=== PATIENT | male | born 1975 | race Caucasian/White ===

== ENCOUNTER → 2020-10-21 14:23 | Outpatient (BNVA) | payer BC, SELFPAY | PROVIDERS: PCP Internal Medicine; Visit Provider Urology | DX: Z76.89 Persons encountering health services in other specified circumstances (principal) ==

== ENCOUNTER → 2020-11-08 08:30 | Outpatient (BNVA) | payer BC, SELFPAY | PROVIDERS: PCP Internal Medicine; Visit Provider Urology ==

== ENCOUNTER 2021-01-17 14:40 | Outpatient (REF) | payer BC, SELFPAY ==
[2021-01-17 17:07] LABS: Prostate Specific Antigen 0.75 ng/mL (<0.05-4.0)
== END 2021-01-17 14:41 | disposition home or self-care (01) ==
LOC: HO.LAB 14:40
PROVIDERS: PCP Internal Medicine; Visit Provider Urology
DX: N50.819 Testicular pain, unspecified (principal); Z80.42 Family history of malignant neoplasm of prostate
CPT/HCPCS: 36415; 64425; 81002; 84153

== ENCOUNTER 2021-02-10 09:50 | Day surgery (SDC) | payer BC, SELFPAY ==
[2021-02-05 11:56] VITALS: BMI 29.4
[2021-02-10] VITALS (8 sets, daily range): BP systolic 111–144; BP diastolic 46–88; PULSE 80–91; RESP 16–18; TEMP 36.1–37; O2SAT 98–100
[2021-02-10] MEDS: Lactated Ringers 1,000 ML 20 ML IVCONT (10:14)
--- NOTE | 2021-02-10 11:55 | P.CONAN_ITS ---
[facility] Active Problems Active Problems: All Active Problems (Updated 01/17/21 @ 15:08 by Ethan kilgore MD) Epididymitis, right (Acute) Family history of prostate cancer (Acute) Orchalgia (Acute) Past Medical History Medical History Orchalgia Surgical History Surgical History No significant past surgical history Social History Social History Smoking Status: Unknown if ever smoked Advance Directives Information Provided: No Meds Allergies Allergy/AdvReac Type Severity Reaction Status Date / Time Penicillins Allergy Mild blisters Verified 02/10/21 09:57 Active Medications: Current Medications Generic Name Dose Route Start Last Admin Trade Name Freq PRN Reason Stop Dose Admin Lactated Ringer's 1,000 mls @ 20 mls/hr 02/10/21 07:30 02/10/21 10:14 Lr IVCONT 20 mls/hr .Q24H NATALEE Administration Home Medications Medication Instructions Recorded Confirmed Last Taken Type bupropion HCl 1 tab PO BID 02/10/21 02/10/21 02/10/21 History buspirone 2 tab PO BID 02/10/21 02/10/21 02/10/21 History lisinopril 02/10/21 02/10/21 02/10/21 History venlafaxine [Effexor XR] 1 cap PO BID 02/10/21 02/10/21 02/10/21 History Exam Exam Date and Time: February 10, 2021 1155 Height,Weight and Vital Signs: Height 5 ft 10 in Weight 92.986 kg Last Vital Signs Temp 97 F 02/10/21 10:01 Pulse 82 02/10/21 10:01 Resp 18 02/10/21 10:01 BP 144/88 H 02/10/21 10:01 Pulse Ox 98 02/10/21 10:01 Airway Mallampati Class: II TM Dist: >3cm Neck ROM: Full Assessment and Plan Assessment Anesthesia Assessment: Anesthesia Plan Discussed and Chart Reviewed Final Anesthetic Review NPO: Yes ASA Class: I Final Preanesthetic Review: No Changes in Pt Med Stat, Meds/Allgs Chart Reviewed, Consent Obtained/Reviewed and Anes Risks/Benef Reviewed Patient Risk: Low Procedure Risk: Low Assessment/Block/Sedation in SS: Assess/Block/Sedation-SS Anesthetic Plan Anesthetic Plan: GA Disposition: Standard PACU
--- NOTE | 2021-02-10 13:26 | MHC.SHP ---
Pre-Procedural Eval Section A The patient is an INPATIENT: No Changes since office visit: No Cold of Flu in the past 2 weeks, No New Medical Problems, No Changes in Medication and No Patient answered all questions The History & Physical has been completed within 30 days and I have reviewed it.: Yes Section B Chief Complaint: testicular pain Allergies: Allergies Allergy/AdvReac Type Severity Reaction Status Date / Time Penicillins Allergy Mild blisters Verified 02/10/21 09:57 Plan Diagnosis/Plan: Unchanged (Right testicular nerve denervation) I have reviewed the history and physical and performed a pertinent physical examination on my patient. No changes have occurred unless specified.
--- NOTE | 2021-02-10 15:01 | PM.OP ---
Brief Operative Note Date of Service: 02/10/21 Pre-op diagnosis: Testicular orchalgia Post-op diagnosis: same Procedure: Right testicular denervation Surgeon: Ethan Jacobs MD Anesthesia: GLMA Estimated blood loss (mL): 0 Pathology: other Condition: stable Disposition: same day
--- NOTE | 2021-02-10 15:02 | P.OP_ITS ---
Operative Note Operative Note Date of Service: 02/10/21 Narrative: PreOperative Diagnosis: Right testicular pain Post Operative Diagnosis: Right testicular pain plus inflamed vas deferens Procedure: Right testicular denervation with sectioning of right vas deferens Surgeon: Dr Ethan Jacobs Anesthesia: General Indications for procedure: 45-year-old male. Right testicle high riding and unable to be reduced with persistent low-level pain. Responded to cord block in office. Plan for right testicular denervation. Understands surgeon 85% success rate. Primary risk is loss of testicle. This will be either immediate or delayed fashion. Procedure: After informed consent was verified the patient was brought to the operating room and placed in a supine position. Anesthesia was administered per protocol. The patient was shaved and then prepped and draped in sterile fashion. Safety pause time-out was observed. Antibiotics have been given. The right inguinal canal was palpated. A 2 in incision was marked directly above the Will canal. Local anesthetic was infiltrated subdermal. Skin incision was taken down to this subcutaneous tissue. The overlying fat from the cord was dissected through. Once the cord was exposed it was lifted to the surface placed a [place] drain under the cord. A tongue depressor was then placed under the cord to give and operative surface. The operative microscope was brought onto the field. This allowed 10 fold magnification throughout the procedure. There was tension noted particularly through the vas deferens which was markedly inflamed and thickened compared to a normal situation. The investing layers of muscle were divided using bipolar cautery and sharp dissection. The muscles of the dartos were taken down in circumferential fashion around the cord structures. We were able to separate the cord structures into the testicular structures and the vas deferens. The intervening layer was markedly inflamed. The testicular structures were isolated with a vessel loop. At this point we used a Doppler to try and lidocaine the vessels in each packet. The cord structure package for the cord structures was stripped of its patching fascia in once insult divided it was left. Attention was focused on the inflamed vas deferens. We were able to slowly expose the vas deferens. Markedly thickened outer layer. Using 11 blade we denervated a 1 cm section of the vas deferens. We then based on the inflammation of the vas deferens we decided to divide the vas deferens. This is partially because the testicle was high riding in the scrotum and it appeared was the inflammation along the length of the vas deferens that was coursing this and it was a very tight cord structure. Once it was divided and released approximately 2 in and the testicle dropped down into a much more dependent position in the scrotum. The distal end was oversewn with 4-0 Maxon. Adequate hemostasis was controlled. The incision was irrigated. Deep tissue was reapproximated with interrupted 3-0 Vicryl. The skin was reapproximated with a running 4-0 Maxon. Dressing was applied with glue He tolerated the procedure well was extubated in the operating room transferred in stable condition to the recovery area Pathology: Inflamed vas deferens Drains:
[2021-02-10] MEDS: Acetaminophen 325 MG TABLET 650 MG PO (15:59)
== END 2021-02-10 16:40 | disposition home or self-care (01) ==
PROVIDERS: PCP Internal Medicine; Visit Provider Urology
PROC: (CPT 55899; principal; 2021-02-10 11:20)
DX: N50.811 Right testicular pain (principal); N49.1 Inflammatory disorders of spermatic cord, tunica vaginalis and vas deferens
CPT/HCPCS: 55899; 69990; 88302; J1885; J1956; J2250; J3010

== ENCOUNTER → 2021-02-26 12:55 | Outpatient (BNVA) | payer BC, SELFPAY | PROVIDERS: PCP Internal Medicine; Visit Provider Urology ==

== ENCOUNTER → 2021-12-16 15:05 | Outpatient (BNVA) | payer BC, SELFPAY | PROVIDERS: PCP Internal Medicine; Visit Provider Urology | DX: R39.15 Urgency of urination (principal); N50.811 Right testicular pain | CPT/HCPCS: 51798 ==

== ENCOUNTER 2022-02-23 13:00 | Outpatient (RCR) | payer BC, SELFPAY ==
--- NOTE | 2022-01-05 14:47 | MHC.PT.EP ---
[facility] [place] Office [place] Office [place] Office [address] Anton Ceja [address] [phone] F: [phone] F: [phone] F: [phone] F: [phone] Physical Therapy Plan of Care Date of Evaluation: 01/05/22 Date of Surgery: 02/10/21 Diagnosis: Testicular pain Assessment: The patient arrived reporting inguinal region pain. He has pain with functional movements and intermittently pain at rest. His greatest pain is following ejaculation. I did an external assessment today of his inguinal region. Increased tissue tension noted around the incision as expected. Decreased fascia mobility as expected. Pt will also benefit on education to avoid clenching during sexual activity. I will also review posture and body mechanics with him. I gave him an initial HEP to begin tissue and facilitate fascia mobility in his 1st layer pelvic floor muscles. Frequency and Duration: The patient will be seen 1x/week x 4 weeks. Short Term Goals: 1. Improve tissue mobility in inguinal region. 2. Establish understanding of diaphragmatic breathing. Airport Guide Goals: 1. Pt to return to all sexual function including ejaculation without pain. 2. The patient to be able to manage HEP independently to maintain gains made in therapy. Treatment Plan: Modalities to reduce pain, spasms and effusion. Manual therapy to restore motion and function. Therapeutic exercise to improve strength and flexibility. Neuromuscular re-education for posture and balance. Therapeutic activities to return to functional activities of daily living. Electronically signed by: Flavia Harris PT DPT Please sign and return to therapist. Thank you for your referral.
== END 2022-05-22 14:36 | disposition home or self-care (01) ==
LOC: HO.PT 13:00
PROVIDERS: PCP Internal Medicine; Visit Provider Urology
DX: N50.819 Testicular pain, unspecified (principal)
CPT/HCPCS: 97110; 97112; 97140; 97161

== ENCOUNTER → 2022-06-23 15:49 | Outpatient (BNVA) | payer BC, SELFPAY | PROVIDERS: PCP Internal Medicine; Visit Provider Urology | DX: R39.15 Urgency of urination (principal) | CPT/HCPCS: 51798 ==

== ENCOUNTER → 2022-11-04 16:19 | Outpatient (BNVA) | payer BC, SELFPAY | PROVIDERS: PCP Internal Medicine; Visit Provider Psychiatry & Neurology Psychiatry | DX: F32.A Depression, unspecified (principal) ==

== ENCOUNTER → 2023-02-18 16:32 | Outpatient (BNVA) | payer BC, SELFPAY | PROVIDERS: PCP Internal Medicine; Visit Provider Psychiatry & Neurology Psychiatry ==

== ENCOUNTER 2023-06-29 16:07 | Outpatient (AMB) | payer BC, SELFPAY ==
--- NOTE | 2023-06-29 16:21 | MHC.OFFVISPS ---
Intake Intake Visit Reasons: depression Allergies Penicillins Allergy (Mild, Verified 06/23/22 08:44) blisters HPI- Psychiatric Chief Complaint: depression HPI Narrative: Pt seen in f/u mood has generally been good no dating socially active no medical changes continues to do well on Wellbutrin and Effexor is aware this can contribute to hypertension patient is being treated for hypertension. Patient has not want to make any changes. Still has been stable future oriented able to enjoy things engaged at work Past Psychiatric History: Past history of severe depression post college was hospitalized in did require ECT Mental Status Exam Mental Status Exam Narrative: Mental Status Exam Narrative: Appearance: Casually dressed Behavior: Cooperative appropriate psychomotor: Within normal limits Speech: Normal volume and prosody Thought proccess logical and goal-directed Thought content: Future oriented no self-harming thoughts some pessimism Mood: Euthymic Affect: Appropriate to mood some Flattening SI:denies HI:denies VH/AH:none Delusions: None Insight/judgment: Good insight and judgment Memory/cog: Intact Occasional insight Assessment and Plan Assessment & Plan (1) Social anxiety disorder: Status: Acute Code(s): F40.10 - Social phobia, unspecified (2) OCD (obsessive compulsive disorder): Status: Acute Code(s): F42.9 - Obsessive-compulsive disorder, unspecified (3) Generalized anxiety disorder: Status: Acute Code(s): F41.1 - Generalized anxiety disorder (4) Major depression, recurrent, full remission: Status: Acute Code(s): F33.42 - Major depressive disorder, recurrent, in full remission Plan Patient stable on current regimen does not wish to make any changes 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 Patient with some restriction of mood but has equal does not wish to be changes where medications can increase blood pressure he is being treated for hypertension history of quite treatment resistant depression Medications: Refilled alprazolam 0.25 mg PO BEDTIME PRN 14 tabs 1RF sleep bupropion HCl 100 mg PO BID 180 tabs 1RF 90 days buspirone 30 mg (2 x 15 mg) PO BID 360 tabs 1RF venlafaxine ER 150 mg PO BID 180 caps 1RF 90 days Counseling and coordination of Care Medication management counseling: Effectiveness and Side effects Diagnosis and Prognosis Counseling: Prognosis over time and Adequacy of current interventions Details: I spent [] minutes reviewing the record, seeing the patient and documenting in the medical record. Counseling provided to the patient/caregiver as outlined below. Addressed patient/caregiver concerns regarding current medication regime including effective adherence. Addressed patient/caregiver concerns regarding diagnosis and prognosis including accuracy of diagnosis, prognosis over time, impact of diagnosis. Addressed patient/caregiver concerns regarding impact of recent stressors. 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
== END 2023-06-29 16:21 | disposition home or self-care (01) ==
LOC: HO.HOP 16:07
PROVIDERS: PCP Internal Medicine; Visit Provider Psychiatry & Neurology Psychiatry
DX: F40.10 Social phobia, unspecified (principal); F42.9 Obsessive-compulsive disorder, unspecified; F41.1 Generalized anxiety disorder; F33.42 Major depressive disorder, recurrent, in full remission
CPT/HCPCS: 99214

== ENCOUNTER → 2023-06-29 16:07 | Outpatient (BNVA) | payer BC, SELFPAY | PROVIDERS: PCP Internal Medicine; Visit Provider Psychiatry & Neurology Psychiatry ==

== ENCOUNTER 2023-08-23 14:28 | Outpatient (AMB) | payer BC, SELFPAY ==
[2023-08-23 14:52] VITALS: BP 110/70; PULSE 94; BMI 29.3
--- NOTE | 2023-08-23 14:52 | HO.NEPHOV ---
HPI HPI Comments History of Present Illness Details Brain was in office in follow-up of his proteinuria. He has longstanding hypertension. He has no diabetes. His blood pressure is well controlled. He has no edema or urinary symptoms. ( he had history of edema from amlodipine). He had no history of coronary disease, CVA, congestive heart failure, peripheral arterial disease, renal artery stenosis or nephrolithiasis. He does not take any nonsteroidal anti-inflammatory medications. He does not have any epistaxis, photosensitivity, skin rashes, joint pains, new bone or back pain. His renal functions had been at baseline. He had free kappa chain and had seen small wind energy installer Dr. Griffith who felt it is not very relevant. He is tolerating CECILIA inhibitor well. He did not have any new or active complaints at the time of this office visit. [facility] Medical History (Updated 08/27/23 @ 06:17 by Martínez Chappell MD) Social anxiety disorder OCD (obsessive compulsive disorder) Generalized anxiety disorder Cyclical vomiting Hypertension Orchalgia Surgical History (Updated 08/23/23 @ 14:54 by Elma Byrne MA) History of hernia surgery History of cholecystectomy No significant past surgical history Social History (Updated 08/23/23 @ 14:54 by Elma Byrne MA) Alcohol intake: never Patient Tobacco Use Status: Never used Tobacco Vital Signs 08/23/23 14:52 Height 5 ft 10 in Weight 204 lb 2 oz BMI 29.3 BP 110/70 Blood Pressure Location Lt brachial Position Sitting Pulse 94 Pulse Source Pulse Oximeter Physical Exam Vital Signs: Last Vital Signs Pulse 94 08/23/23 14:52 BP 110/70 08/23/23 14:52 BMI result Body Mass Index 29.3 Const General: comfortable and no acute distress Orientation/consciousness: patient oriented x3 HEENT Head: Yes normocephalic Mouth: Normal oral and palatal mucosa present Eyes EOM: EOMs intact bilaterally Neck Neck: Yes supple Resp Auscultation: clear to auscultation bilaterally Cardio Jugular venous distension: no JVD Rate: regular rate Heart sounds: Murmur heart sound present GI Palpation (GI): Soft to palpation Auscultation: normal bowel sounds General: Yes no CVA tenderness Back/Spine/Pelvis Back: no CVA tenderness Skin General skin exam: no rashes or lesions noted Neuro General: patient oriented x3 and moves all extremities Extrem General: Yes no pedal edema Assessment & Plan Assessment & Plan (1) Hypertension: Code(s): I10 - Essential (primary) hypertension Qualifiers: Hypertension type: primary hypertension Qualified Code(s): I10 - Essential (primary) hypertension (2) Proteinuria: Code(s): R80.9 - Proteinuria, unspecified Qualifiers: Proteinuria type: other Qualified Code(s): R80.8 - Other proteinuria Plan Cecilio has proteinuria for some time. I ordered a repeat 24 urine collection for follow-up. He is tolerating CECILIA inhibitor well. He had undetectable protein the last visit. He needs to lose weight. His blood pressure has been at goal. He had [place] chains for which he has seen small wind energy installer. His serum calcium has been normal. I did not make any medication changes today. All questions were answered. Follow-up appointment given. Time for a retrieval of data, office visit and recommendation 23 minutes. Orders: Orders Protein, 24 Hr Urine Group 08/23/23 I10 - Essential (primary) hypertension Electrolytes 08/23/23 I10 - Essential (primary) hypertension Blood Urea Nitrogen 08/23/23 I10 - Essential (primary) hypertension Creatinine 08/23/23 I10 - Essential (primary) hypertension Calcium 08/23/23 I10 - Essential (primary) hypertension Coding Level of Care Code Est Pt Level 3 (84004) Diagnoses Primary hypertension I10 Hypertension type: primary hypertension Other proteinuria R80.8 Proteinuria type: other
== END 2023-08-23 15:11 | disposition home or self-care (01) ==
PROVIDERS: PCP Internal Medicine; Visit Provider Internal Medicine Nephrology
DX: I10 Essential (primary) hypertension (principal); R80.8 Other proteinuria
CPT/HCPCS: 99213

== ENCOUNTER → 2023-08-23 14:28 | Outpatient (BNVA) | payer BC, SELFPAY | PROVIDERS: PCP Internal Medicine; Visit Provider Internal Medicine Nephrology ==

== ENCOUNTER 2023-11-30 15:30 | Outpatient (AMB) | payer BC, SELFPAY ==
--- NOTE | 2023-11-30 15:16 | A.OFFPSYCH_ITS ---
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 and not currently going out 2 jobs no significant melancholy no current cancer diagnosis he is followed by Hematology Oncology He has had times borderline hypertension we have discussed possibility of lowering venlafaxine and Wellbutrin has generally been feeling relatively well for a long period of time and has not wanted to decrease Past Psychiatric History: Past history of severe depression post college was hospitalized in did require ECT Subjective Subjective Subjective Medication Compliance: Yes Mental Status Exam Mental Status Exam Narrative: Mental Status Exam Narrative: Appearance: Casually dressed Behavior: Cooperative appropriate psychomotor: Within normal limits Speech: Normal volume and prosody Thought proccess logical and goal-directed Thought content: Future oriented some chronic pessimism Mood: Euthymic Affect: Appropriate to mood some Flattening SI:denies HI:denies VH/AH:none Delusions: None Insight/judgment: Good insight and judgment Memory/cog: Intact Occasional insight Assessment and Plan Assessment & Plan (1) Social anxiety disorder: Status: Acute Code(s): F40.10 - Social phobia, unspecified (2) OCD (obsessive compulsive disorder): Status: Acute Code(s): F42.9 - Obsessive-compulsive disorder, unspecified (3) Major depression, recurrent, full remission: Status: Acute Code(s): F33.42 - Major depressive disorder, recurrent, in full remission Plan Patient generally stable for an extended period some degree of chronic social awkwardness much less in the way of obsessional rumination and dwelling on interactions has he has had in the past feels generally stable on venlafaxine and Wellbutrin we have discussed need to manage blood pressure has not wanted to try and lower medication dosing is aware this could be a contributing factor to increased blood pressure at times Counseling and coordination of Care Pt. Self Management counseling: Exercise and Behavior activation Diagnosis and Prognosis Counseling: Adequacy of current interventions Details: I spent [37] minutes reviewing the record, seeing the patient and documenting in the medical record. Counseling provided to the patient/caregiver as outlined below. Addressed patient/caregiver concerns regarding current medication regime including effective adherence. Addressed patient/caregiver concerns regarding diagnosis and prognosis including accuracy of diagnosis, prognosis over time, impact of diagnosis. Addressed patient/caregiver concerns regarding impact of recent stressors. 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
== END 2023-11-30 15:32 | disposition home or self-care (01) ==
LOC: HO.HOP 15:30
PROVIDERS: PCP Internal Medicine; Visit Provider Psychiatry & Neurology Psychiatry
DX: F40.10 Social phobia, unspecified (principal); F42.9 Obsessive-compulsive disorder, unspecified; F33.42 Major depressive disorder, recurrent, in full remission
CPT/HCPCS: 90833; 99213

== ENCOUNTER → 2023-11-30 15:30 | Outpatient (BNVA) | payer BC, SELFPAY | PROVIDERS: PCP Internal Medicine; Visit Provider Psychiatry & Neurology Psychiatry ==

== ENCOUNTER 2024-03-27 15:30 | Outpatient (AMB) | payer BC, SELFPAY ==
--- NOTE | 2024-03-27 15:52 | A.OFFPSYCH_ITS ---
Intake Intake Visit Reasons: depression Allergies Penicillins Allergy (Mild, Verified 06/23/22 08:44) blisters Medication List - Last Reconciled 03/27/24 by Crescencio Veras MD alprazolam 0.25 mg PO BEDTIME PRN atorvastatin 10 mg PO BEDTIME bupropion HCl SR 100 mg PO BID 90 days buspirone 30 mg (2 x 15 mg) PO BID hydrocodone-acetaminophen 5-325 mg 1 tab PO Q4H PRN 7 days lisinopril venlafaxine ER 150 mg PO BID 90 days HPI- Psychiatric Chief Complaint: depression HPI Narrative: Pt seen in f/u does have inc protein in blood work they are following had protein electrophoresis they have been following patient is aware this could be a type of blood cancer blood pressure in control Patient's mood generally stable feels he has a reasonable quality of life genera lly content no complaints of side effects Past Psychiatric History: Past history of severe depression post college was hospitalized in did require ECT Mental Status Exam Mental Status Exam Narrative: Mental Status Exam Narrative: Appearance: Casually dressed Behavior: Cooperative appropriate psychomotor: Within normal limits Speech: Normal volume and prosody Thought proccess logical and goal-directed Thought content: Future oriented some chronic pessimism Mood: Euthymic Affect: Appropriate to mood some Flattening SI:denies HI:denies VH/AH:none Delusions: None Insight/judgment: Good insight and judgment Memory/cog: Intact Occasional insight Assessment and Plan Assessment & Plan (1) OCD (obsessive compulsive disorder): Status: Acute Code(s): F42.9 - Obsessive-compulsive disorder, unspecified (2) Social anxiety disorder: Status: Acute Code(s): F40.10 - Social phobia, unspecified (3) Major depression, recurrent, full remission: Status: Acute Code(s): F33.42 - Major depressive disorder, recurrent, in full remission Plan Continue Wellbutrin BuSpar venlafaxine patient stable blood pressure and control does not wish to try and make any changes mood generally okay able to enjoy things not overly obsessional continue plan of care follow-up 4 months Medications: Refilled bupropion HCl SR 100 mg PO BID 180 tabs 1RF 90 days buspirone 30 mg (2 x 15 mg) PO BID 360 tabs 1RF venlafaxine ER 150 mg PO BID 180 caps 1RF 90 days Counseling and coordination of Care Pt. Self Management counseling: Exercise and Maintenance-social rhythm Medication management counseling: Effectiveness and Side effects Details: I spent [30] minutes reviewing the record, seeing the patient and documenting in the medical record. Counseling provided to the patient/caregiver as outlined below. Addressed patient/caregiver concerns regarding current medication regime including effective adherence. Addressed patient/caregiver concerns regarding diagnosis and prognosis including accuracy of diagnosis, prognosis over time, impact of diagnosis. Addressed patient/caregiver concerns regarding impact of recent stressors. 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
== END 2024-03-27 16:42 | disposition home or self-care (01) ==
LOC: HO.HOP 15:30
PROVIDERS: PCP Internal Medicine; Visit Provider Psychiatry & Neurology Psychiatry
DX: F42.9 Obsessive-compulsive disorder, unspecified (principal); F40.10 Social phobia, unspecified; F33.42 Major depressive disorder, recurrent, in full remission
CPT/HCPCS: 99214

== ENCOUNTER → 2024-03-27 15:30 | Outpatient (BNVA) | payer BC, SELFPAY | PROVIDERS: PCP Internal Medicine; Visit Provider Psychiatry & Neurology Psychiatry ==

== ENCOUNTER 2024-08-07 14:13 | Outpatient (AMB) | payer BC, SELFPAY ==
--- NOTE | 2024-08-07 14:42 | A.OFFPSYCH_ITS ---
Intake Intake Visit Reasons: depression Allergies Penicillins Allergy (Mild, Verified 06/23/22 08:44) blisters Medication List - Last Reconciled 08/07/24 by Crescencio Veras MD bupropion HCl SR 100 mg PO BID 90 days buspirone 30 mg (2 x 15 mg) PO BID hydrocodone-acetaminophen 5-325 mg 1 tab PO Q4H PRN 7 days lisinopril venlafaxine ER 150 mg PO BID 90 days HPI- Psychiatric Chief Complaint: depression HPI Narrative: Has generally been psych stable no significant dep episodes. 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.Pt has been doing ok generally feeling good physically mentally sleep ok Past Psychiatric History: Past history of severe depression post college was hospitalized in did require ECT Mental Status Exam Mental Status Exam Narrative: Mental Status Exam Narrative: Appearance: Casually dressed Behavior: Cooperative appropriate psychomotor: Within normal limits Speech: Normal volume and prosody Thought proccess logical and goal-directed Thought content: Future oriented some chronic pessimism Mood: Euthymic Affect: Appropriate to mood some Flattening SI:denies HI:denies VH/AH:none Delusions: None Insight/judgment: Good insight and judgment Memory/cog: Intact Occasional insight Assessment and Plan Assessment & Plan (1) Major depression, recurrent, full remission: Status: Acute Code(s): F33.42 - Major depressive disorder, recurrent, in full remission (2) Generalized anxiety disorder: Status: Acute Code(s): F41.1 - Generalized anxiety disorder (3) OCD (obsessive compulsive disorder): Status: Acute Code(s): F42.9 - Obsessive-compulsive disorder, unspecified (4) Social anxiety disorder: Status: Acute Code(s): F40.10 - Social phobia, unspecified Plan Pt seen in f/u mood stable cont effexor 300 mg buspar cont wellbutrin bp in control generally stable on effexor wellbutrin buspar. Medications: New rosuvastatin 20 mg PO DAILY Refilled buspirone 30 mg (2 x 15 mg) PO BID 360 tabs 1RF venlafaxine ER 150 mg PO BID 180 caps 1RF 90 days bupropion HCl SR 100 mg PO BID 180 tabs 1RF 90 days Counseling and coordination of Care Pt. Self Management counseling: Behavior activation Medication management counseling: Effectiveness and Side effects Diagnosis and Prognosis Counseling: Adequacy of current interventions Details: I spent [39] minutes reviewing the record, seeing the patient and documenting in the medical record. Counseling provided to the patient/caregiver as outlined below. Addressed patient/caregiver concerns regarding current medication regime including effective adherence. Addressed patient/caregiver concerns regarding diagnosis and prognosis including accuracy of diagnosis, prognosis over time, impact of diagnosis. Addressed patient/caregiver concerns regarding impact of recent stressors. 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
== END 2024-08-07 17:09 | disposition home or self-care (01) ==
LOC: HO.HOP 14:13
PROVIDERS: PCP Internal Medicine; Visit Provider Psychiatry & Neurology Psychiatry
DX: F33.42 Major depressive disorder, recurrent, in full remission (principal); F41.1 Generalized anxiety disorder; F42.9 Obsessive-compulsive disorder, unspecified; F40.10 Social phobia, unspecified
CPT/HCPCS: 99214

== ENCOUNTER → 2024-08-07 14:13 | Outpatient (BNVA) | payer BC, SELFPAY | PROVIDERS: PCP Internal Medicine; Visit Provider Psychiatry & Neurology Psychiatry ==

== ENCOUNTER 2024-10-24 10:25 | Outpatient (AMB) | payer BC, SELFPAY ==
--- NOTE | 2024-10-24 10:44 | HO.NEPHOV ---
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 He has longstanding hypertension. He has no diabetes. His blood pressure is well controlled. He has no edema or urinary symptoms. ( he had history of edema from amlodipine). He had no history of coronary disease, CVA, congestive heart failure, peripheral arterial disease, renal artery stenosis or nephrolithiasis. He does not take any nonsteroidal anti-inflammatory medications. He does not have any epistaxis, photosensitivity, skin rashes, joint pains, new bone or back pain. His renal functions had been at baseline. He had free kappa chain and had seen grease man Dr. Griffith who felt it is not very relevant. He is tolerating CECILIA inhibitor well. He did not have any new or active complaints at the time of this office visit. COUNTS INCLUDE 234 BEDS AT THE [facility] Medical History (Updated 08/27/23 @ 06:17 by Martínez Chappell MD) Social anxiety disorder OCD (obsessive compulsive disorder) Generalized anxiety disorder Cyclical vomiting Hypertension Orchalgia Surgical History History of hernia surgery History of cholecystectomy No significant past surgical history Social History Alcohol intake: never Patient Tobacco Use Status: Never used Tobacco Review of Systems Const All systems reviewed & are unremarkable except as noted in HPI and below Physical Exam Vital Signs: Last Vital Signs Pulse 93 10/24/24 10:45 BP 110/80 10/24/24 10:45 Pulse Ox 95 10/24/24 10:45 Oxygen Delivery Method Room Air 10/24/24 10:45 BMI result Body Mass Index 31.0 Const General: comfortable and no acute distress Orientation/consciousness: patient oriented x3 HEENT Head: Yes normocephalic Mouth: Normal oral and palatal mucosa present Eyes EOM: EOMs intact bilaterally Neck Neck: Yes supple Resp Auscultation: clear to auscultation bilaterally Cardio Jugular venous distension: no JVD Rate: regular rate GI Palpation (GI): Soft to palpation Auscultation: normal bowel sounds General: Yes no CVA tenderness Back/Spine/Pelvis Back: no CVA tenderness Skin General skin exam: no rashes or lesions noted Neuro General: patient oriented x3 and moves all extremities Extrem General: Yes no pedal edema Results Reviewed Nephrology Results: No Data to Display Assessment & Plan Assessment & Plan (1) Proteinuria: Code(s): R80.9 - Proteinuria, unspecified Category: Medical Qualifiers: Proteinuria type: other Qualified Code(s): R80.8 - Other proteinuria (2) Hypertension: Code(s): I10 - Essential (primary) hypertension Category: Medical Qualifiers: Hypertension type: primary hypertension Qualified Code(s): I10 - Essential (primary) hypertension Plan Cecilio has proteinuria for some time. I ordered a repeat 24 urine collection is pending. He is tolerating CECILIA inhibitor well. He had undetectable protein the last visit. He needs to lose weight. His blood pressure has been at goal. He had [place] chains for which he has seen grease man. His serum calcium has been normal. I did not make any medication changes today. All questions were answered. Follow-up appointment given. Orders: Orders Protein Creatinine Ratio, Ur 1 Year I10 - Essential (primary) hypertension, R80.8 - Other proteinuria Blood Urea Nitrogen 1 Year I10 - Essential (primary) hypertension, R80.8 - Other proteinuria Electrolytes 1 Year I10 - Essential (primary) hypertension, R80.8 - Other proteinuria Creatinine 1 Year I10 - Essential (primary) hypertension, R80.8 - Other proteinuria Coding Level of Care Code Est Pt Level 4 (33097) Diagnoses Other proteinuria R80.8 Proteinuria type: other Primary hypertension I10 Hypertension type: primary hypertension
[2024-10-24 10:45] VITALS: BP 110/80; PULSE 93; O2SAT 95; BMI 31.0
== END 2024-10-24 11:09 | disposition home or self-care (01) ==
PROVIDERS: PCP Internal Medicine; Visit Provider Internal Medicine Nephrology
DX: R80.8 Other proteinuria (principal); I10 Essential (primary) hypertension
CPT/HCPCS: 99214

== ENCOUNTER 2024-11-20 14:29 | Outpatient (AMB) | payer BC, SELFPAY ==
--- NOTE | 2024-11-20 15:07 | A.OFFPSYCH_ITS ---
Intake Intake Visit Reasons: depression Allergies Penicillins Allergy (Mild, Verified 10/24/24 10:45) blisters Medication List - Last Reconciled 11/20/24 by Crescencio Veras MD bupropion HCl SR 100 mg PO BID 90 days buspirone 30 mg (2 x 15 mg) PO BID lisinopril 10 mg PO DAILY rosuvastatin 20 mg PO DAILY venlafaxine ER 150 mg PO BID 90 days HPI- Psychiatric Chief Complaint: depression HPI Narrative: Pt seen in psych f/u mood ok some winter fatigue much dec obsessional anxiety not exercising regularly no significant depressive episodes no medical changes Past Psychiatric History: Past history of severe depression post college was hospitalized in did require ECT Subjective Subjective Subjective Medication Compliance: Yes Mental Status Exam Mental Status Exam Narrative: Mental Status Exam Narrative: Appearance: Casually dressed Behavior: Cooperative appropriate psychomotor: Within normal limits Speech: Normal volume and prosody Thought proccess logical and goal-directed Thought content: Future oriented Mood: ok Affect: Appropriate to mood some Flattening SI:denies HI:denies VH/AH:none Delusions: None Insight/judgment: Good insight and judgment Memory/cog: Intact Occasional insight Assessment and Plan Assessment & Plan (1) OCD (obsessive compulsive disorder): Status: Acute Code(s): F42.9 - Obsessive-compulsive disorder, unspecified (2) Social anxiety disorder: Status: Acute Code(s): F40.10 - Social phobia, unspecified (3) Major depression, recurrent, full remission: Status: Acute Code(s): F33.42 - Major depressive disorder, recurrent, in full remission Plan cont plan of care have discussed htn risks with meds aware and being tx Medications: Refilled buspirone 30 mg (2 x 15 mg) PO BID 360 tabs 1RF venlafaxine ER 150 mg PO BID 180 caps 1RF 90 days bupropion HCl SR 100 mg PO BID 180 tabs 1RF 90 days Counseling and coordination of Care Details-Self Mgmt counseling: Issues related to maintaining stability being monitored for possible hodgkins Medication management counseling: Effectiveness, Side effects and Duration Diagnosis and Prognosis Counseling: Impact of diagnosis on life functions and Adequacy of current interventions Details: I spent [] minutes reviewing the record, seeing the patient and documenting in the medical record. Counseling provided to the patient/caregiver as outlined below. Addressed patient/caregiver concerns regarding current medication regime including effective adherence. Addressed patient/caregiver concerns regarding diagnosis and prognosis including accuracy of diagnosis, prognosis over time, impact of diagnosis. Addressed patient/caregiver concerns regarding impact of recent stressors. 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
--- OUTSIDE RECORDS SUMMARY | 2024-11-20 16:08 | XMS_ITS | Clinical Summary ---
Author Organization [facility] Facility Address [address] [address] Care Team Providers Care Laboratory Animal Care Veterinarian Name Role Phone Paul Quispe MD Primary Care Provider [phone] Allergies Active Allergy Reactions Criticality Noted Date Comments Penicillin V Other (see comments) 08/28/2022 Medications venlafaxine XR (EFFEXOR-XR) 150 MG 24 hr capsule Take 300 mg by mouth 1 (one) time each day Do not crush or chew. Active buPROPion SR (WELLBUTRIN SR) 100 MG 12 hr tablet Take 100 mg by mouth in the morning and 100 mg in the evening. Do not crush, chew, or split. . Active busPIRone (BUSPAR) 15 MG tablet Take 30 mg by mouth in the morning and 30 mg in the evening. Active lisinopril 10 MG tablet Take 10 mg by mouth 1 (one) time each day Active atorvastatin (LIPITOR) 10 MG tablet Take 10 mg by mouth 1 (one) time each day Active Active Problems Problem Noted Date Diagnosed Date Hypertension 09/01/2022 Hypertensive disorder 08/28/2022 Proteinuria 08/28/2022 Family History Medical History Relation Comments Cancer Father prostate Cancer Sibling thyroid Relation Status Comments Father Alive Mother Alive Sibling Social History Tobacco Use Types Packs/Day Years Used Date Smoking Tobacco: Never Tobacco Cessation:Counseling Given: Not Answered Alcohol Use Standard Drinks/Week Comments No 0 (1 standard drink = 0.6 oz pur e alcohol) Sex and Gender Information Value Date Recorded Sex Assigned at Not on file Legal Sex Male 4:52 PM EST Gender Identity Not on file Sexual Orientation Not on file Last Filed Vital Signs Vital Sign Reading Time Taken Comments Blood Pressure 108/80 06/01/2023 4:49 PM EDT Pulse 92 09/01/2022 3:00 PM EST Temperature - - Respiratory Rate - - Oxygen Saturation 98% 09/01/2022 3:00 PM EST Inhaled Oxygen Concentration - - Weight 93.1 kg (205 lb 3.2 oz) 06/01/2023 4:49 P M EDT Height 177.8 cm (5' 10 ) 09/01/2022 3:00 PM EST Body Mass Index 29.44 09/01/2022 3:00 PM EST Plan of Treatment Health Maintenance Due Date Last Done Comments Pneumococcal Vaccine: Pediat rics (0 to 5 Years) and At-Risk Patients (6 to 64 Years) (1 of 2 - PCV) 1979 Hepatitis B Vaccine (1 of 3 - 19+ 3-dose series) 11/07 Colorectal Cancer Screening: Annual FOBT 2022 Colorectal Cancer Screening: Colonoscopy 2022 Colorectal Cancer Screening: Sigmoidoscopy 2022 Influenza Vaccine (#1) 2024 Insurance [facility] Care Teams Laboratory Animal Care Veterinarian Relationship Specialty Start Date End Date Paul Quispe MD [address] [place] [address] PCP - General 10/28/20
== END 2024-11-20 18:24 | disposition home or self-care (01) ==
LOC: HO.HOP 14:29
PROVIDERS: PCP Internal Medicine; Visit Provider Psychiatry & Neurology Psychiatry
DX: F42.9 Obsessive-compulsive disorder, unspecified (principal); F40.10 Social phobia, unspecified; F33.42 Major depressive disorder, recurrent, in full remission
CPT/HCPCS: 99214

== ENCOUNTER → 2024-11-20 14:29 | Outpatient (BNVA) | payer BC, SELFPAY | PROVIDERS: PCP Internal Medicine; Visit Provider Psychiatry & Neurology Psychiatry ==

== ENCOUNTER 2025-06-12 14:32 | Outpatient (AMB) | payer BC, SELFPAY ==
--- NOTE | 2025-06-12 14:54 | A.OFFPSYCH_ITS ---
Intake Intake Visit Reasons: depression Allergies Penicillins Allergy (Mild, Verified 10/24/24 10:45) blisters Medication List - Last Reconciled 06/12/25 by Crescencio Veras MD bupropion HCl SR 100 mg PO BID 90 days buspirone 30 mg (2 x 15 mg) PO BID lisinopril 10 mg PO DAILY rosuvastatin 20 mg PO DAILY venlafaxine ER 150 mg PO BID 90 days HPI- Psychiatric Chief Complaint: depression HPI Narrative: Pt seen in psych f/u mood stable no complaints of medical difficulties. Patient states hypertension and control occasional cyclic vomiting. No major anxiety and depressive episodes continues to function well at work. Patient does know he should be doing some more physical exercise. He does continue to golf. Blood pressure generally in control he is aware both Effexor and Wellbutrin can increase blood pressure. Feels stable on current regimen Past Psychiatric History: Past history of severe depression post college was hospitalized in did require ECT Mental Status Exam Mental Status Exam Narrative: Mental Status Exam Narrative: Appearance: Casually dressed Behavior: Cooperative appropriate psychomotor: Within normal limits Speech: Normal volume and prosody Thought proccess logical and goal-directed Thought content: Future oriented Mood: ok Affect: Appropriate to mood some Flattening SI:denies HI:denies VH/AH:none Delusions: None Insight/judgment: Good insight and judgment Memory/cog: Intact Occasional insight Assessment and Plan Assessment & Plan (1) Major depression, recurrent, full remission: Status: Acute Code(s): F33.42 - Major depressive disorder, recurrent, in full remission (2) Generalized anxiety disorder: Status: Acute Code(s): F41.1 - Generalized anxiety disorder (3) OCD (obsessive compulsive disorder): Status: Acute Code(s): F42.9 - Obsessive-compulsive disorder, unspecified Plan Patient generally stable no new medical concerns 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 He is being followed with immuno electrophoresis . No complaints of side effects feeling generally stable on current regimen. Continue plan of care. Discussion with patient to see whether or not his primary care would be willing to prescribe his medication on ongoing if this blurb writer were not available to continue treatment. Medications: Refilled bupropion HCl SR 100 mg PO BID 180 tabs 1RF 90 days buspirone 30 mg (2 x 15 mg) PO BID 360 tabs 1RF venlafaxine ER 150 mg PO BID 180 caps 1RF 90 days Counseling and coordination of Care Medication management counseling: Effectiveness, Side effects and Dosing range Details-Med Mgmt counseling: Does complain of some fatigue does not wish to decrease regimen history of past severe depression and obsessional anxiety Diagnosis and Prognosis Counseling: Impact of diagnosis on life functions and Adequacy of current interventions Details-Diagnosis/Prognosis counseling: Follow-up 3-4 months Details: I spent [] minutes reviewing the record, seeing the patient and documenting in the medical record. Counseling provided to the patient/caregiver as outlined below. Addressed patient/caregiver concerns regarding current medication regime including effective adherence. Addressed patient/caregiver concerns regarding diagnosis and prognosis including accuracy of diagnosis, prognosis over time, impact of diagnosis. Addressed patient/caregiver concerns regarding impact of recent stressors. 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
--- OUTSIDE RECORDS SUMMARY | 2025-06-12 15:31 | XMS_ITS | Clinical Summary ---
Author Organization [facility] Facility Address [address] [address] Care Team Providers Care Inspector Subassemblies Name Role Phone Paul Quispe MD Primary Care Provider [phone] Allergies Active Allergy Reactions Criticality Noted Date [...] Health Maintenance Due Date Last Done Comments Hepatitis B Vaccine (1 of 3 - 19+ 3-dose series) 11/07 Pneumococcal Vaccine: 50+ Years (1 of 2 - PCV) 993 Colorectal Cancer Screening: Annual FOBT 2022 Colorectal Cancer Screening: Colonoscopy 2022 Colorectal Cancer Screening: Sigmoidoscopy 2022 Influenza Vaccine (#1) 2025 Insurance [facility] Care Teams Inspector Subassemblies Relationship Specialty Start Date End Date Paul Quispe MD [address] [place] [address] PCP - General 10/28/20
== END 2025-06-12 15:06 | disposition home or self-care (01) ==
LOC: HO.HOP 14:32
PROVIDERS: PCP Internal Medicine; Visit Provider Psychiatry & Neurology Psychiatry
DX: F33.42 Major depressive disorder, recurrent, in full remission (principal); F41.1 Generalized anxiety disorder; F42.9 Obsessive-compulsive disorder, unspecified
CPT/HCPCS: 99214

== ENCOUNTER 2025-10-08 15:19 | Outpatient (AMB) | payer BC, SELFPAY ==
--- NOTE | 2025-10-08 14:46 | A.OFFPSYCH_ITS ---
Intake Intake Visit Reasons: depression Allergies Penicillins Allergy (Mild, Verified 10/24/24 10:45) blisters HPI- Psychiatric Chief Complaint: depression HPI Narrative: Pt seen in psychiatric follow-up chart reviewed. Patient is PHQ-9 and NAHUM are not elevated. However patient does describe some degree of chronic fatigue lack of energy and feeling at times of melancholy. He is somewhat protective regarding himself avoiding certain situation which he feels might be triggering for him. General though his work functioning is good he is however at the desk much of the day we did discuss that may be a contributing factor. Does have a light box which he is not using. Patients with mild hypertension he is treated with lisinopril he is aware that both Effexor Wellbutrin can contribute to elevated blood pressure but has been stable on Wellbutrin 100 b.i.d. and Effexor 300 has not wanted to lower the dose of Effexor and had discussed previously anti hypertensives could need to be adjusted if there was medication induced hypertension but patient felt was essential to stay on current regimen. Has tried lowering Effexor in the past but did not like how he felt. He does feel like he can do things for enjoyment gets along well at work Past Psychiatric History: Past history of severe depression post college was hospitalized in did require ECT Mental Status Exam Mental Status Exam Narrative: Mental Status Exam Appearance: Casually dressed Behavior: Cooperative appropriate psychomotor: Within normal limits Speech: Normal volume and prosody Thought proccess logical and goal-directed Thought content: Future oriented he is somewhat forthcoming regarding defensive maneuvers practices that he does to limit his emotional exposure impression Mood: ok Affect: Appropriate to mood some Flattening SI:denies HI:denies VH/AH:none Delusions: None Insight/judgment: Good insight and judgment Memory/cog: Intact Assessment and Plan Assessment & Plan (1) Social anxiety disorder: Status: Acute Code(s): F40.10 - Social phobia, unspecified (2) Dysthymia: Status: Acute Code(s): F34.1 - Dysthymic disorder Plan Patient generally stable did discuss option to decrease venlafaxine to see if this would blood pressure and fatigue we did discuss changing the Effexor to a b.i.d. schedule or to take it more toward the evening to see if that would decrease daytime fatigue. He does not want to try lowering his medication to see if this would help regarding blood pressure feel stable on current regimen but has concerns about occasional melancholy and some periods of irritability. In general stable but he does limit his exposure emotionally in certain ways so as to not overwhelm his emotional state. Medications: Refilled buspirone 30 mg (2 x 15 mg) PO BID 360 tabs 1RF bupropion HCl SR 100 mg PO BID 180 tabs 1RF 90 days venlafaxine ER 150 mg PO BID 180 caps 1RF 90 days Counseling and coordination of Care Details-Self Mgmt counseling: Issues related to maintaining mood and choice his regarding limiting certain aspects of his life given his level of fatigue and certain interpersonal avoidant longstanding conditions Medication management counseling: Effectiveness, Side effects and Dosing range Diagnosis and Prognosis Counseling: Impact of diagnosis on life functions and Ad equacy of current interventions Details: I spent [35] minutes reviewing the record, seeing the patient and documenting in the medical record. Counseling provided to the patient/caregiver as outlined below. Addressed patient/caregiver concerns regarding current medication regime including effective adherence. Addressed patient/caregiver concerns regarding diagnosis and prognosis including accuracy of diagnosis, prognosis over time, impact of diagnosis. Addressed patient/caregiver concerns regarding impact of recent stressors. 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
--- OUTSIDE RECORDS SUMMARY | 2025-10-08 18:25 | XMS_ITS | Clinical Summary ---
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
== END 2025-10-08 15:19 | disposition home or self-care (01) ==
LOC: HO.HOP 15:19
PROVIDERS: PCP Internal Medicine; Visit Provider Psychiatry & Neurology Psychiatry
DX: F40.10 Social phobia, unspecified (principal); F34.1 Dysthymic disorder
CPT/HCPCS: 99214